=== PATIENT | male | born 1930 | race Caucasian/White ===

== ENCOUNTER 2019-04-05 10:34 | Emergency (ER) | payer BC ==
[2019-04-05 10:41] VITALS: BP 139/69; PULSE 57
--- NOTE | 2019-04-05 11:18 | EDM.PDOC ---
ED HPI GENERAL MEDICAL PROBLEM - General Chief Complaint: Neuro Symptoms/Deficits Stated Complaint: MEDICAL VIA [facility] Time Seen by Provider: 04/05/19 11:01 Source of Information: Reports: Patient, Family, RN Notes Reviewed History Limitations: Reports: No Limitations - History of Present Illness INITIAL COMMENTS - FREE TEXT/NARRATIVE: 88-year-old gentleman presents to the emergency department today with complaint of right sided weakness, he is had 2 events this morning the first one is approximately 7 AM 4 hours prior events of right-sided weakness lasting about 10 minutes with complete resolution. The next event happened at 8 AM with right sided weakness and a right-sided facial droop. This event lasted less than 10 minutes EMS services were called at that time however he had spontaneous resolution EMS stroke scale at the time Merino was negative. He feels back to his normal self has no functional complaints at this time. took 4 baby asa this am - Related Data Allergies Allergy/AdvReac Type Severity Reaction Status Date / Time Penicillins Allergy Rash Verified 04/05/19 10:42 Home Meds: Home Meds Allopurinol [Zyloprim] 1 tab PO DAILY 04/05/19 [History] Aspirin [Halfprin] 2 tab PO DAILY 04/05/19 [History] Enalapril [Vasotec] 10 mg PO DAILY 04/05/19 [History] Hydrochlorothiazide [Microzide] 12.5 mg PO DAILY 04/05/19 [History] Oseltamivir Phosphate 1 cap PO ASDIRECTED 04/05/19 [History] Past Medical History HEENT History: Reports: Impaired Vision Cardiovascular History: Reports: Hypertension Respiratory History: Reports: Other (See Below) Other Respiratory History: chronic dry cough Gastrointestinal History: Reports: GERD Musculoskeletal History: Reports: Arthritis, Back Pain, Chronic, Gout Neurological History: Reports: Vertigo Oncologic (Cancer) History: Reports: Prostate - Past Surgical History HEENT Surgical History: Reports: None Cardiovascular Surgical History: Reports: None Respiratory Surgical History: Reports: None GI Surgical History: Reports: None Neurological Surgical History: Reports: None Musculoskeletal Surgical History: Reports: Carpal Tunnel Dermatological Surgical History: Reports: None Social & Family History - Tobacco Use Smoking Status *Q: Never Smoker Second Hand Smoke Exposure: No - Caffeine Use Caffeine Use: Reports: Coffee - Recreational Drug Use Recreational Drug Use: No - Living Situation & Occupation Living situation: Reports: , with Spouse Occupation: Retired ED ROS GENERAL - Review of Systems Review Of Systems: See Below Constitutional: Reports: No Symptoms HEENT: Reports: No Symptoms Respiratory: Reports: No Symptoms Cardiovascular: Reports: No Symptoms GI/Abdominal: Reports: No Symptoms : Reports: No Symptoms Musculoskeletal: Reports: No Symptoms Skin: Reports: No Symptoms Neurological: Reports: Weakness (Right sided now resolved) Psychiatric: Reports: No Symptoms ED EXAM, NEURO - Physical Exam Exam: See Below Text/Narrative:: General: Male, not in any distress, alert and oriented x3 HEENT: head is atraumatic normocephalic, eyes pupils equal round reactive to light, sclera clear no conjunctivitis appreciated. Ears tympanic membranes clear and coughlin landmarks and light reflex are present bilaterally canals are clear. Nose no septal deviation, nares are clear, no blood present. Mouth mucosa is moist and pink no erythema or exudate noted in soft palate, tongue is midline uvula is midline, dentition is intact. Neck: Supple no thyromegaly no tracheal deviation. Nodes: Cervical nodes subclavicular nodes nontender no palpable lymphadenopathy noted. Lungs: clear to auscultation bilaterally with symmetrical respirations, no adventitious noise appreciated. CV: Regular rate and rhythm S1 and S2 appreciated no murmurs rubs or gallops noted. Abdomen: Soft, nontender, no palpable masses or organomegaly appreciated, no distention no guarding bowel sounds are present, . Neuro: Cranial nerves II test with pupillary light reflex 4 mm to 2 mm bilaterally, CN III test pupillary constriction, lid elevation and eye abduction bilaterally, CN IV downward movement of eyes bilaterally, CN V good jaw movement, CN lateral deviation of the eyes bilaterally to finger movement , CN VII symmetrical smile shows teeth without difficulty, CN VIII pass finger rub to ears bilaterally, CN IX adequate voice and tone, CN X adequate voice and tone no difficulty swallowing, CN XI can shrug shoulders without difficulty, CN XII can stick tongue out without difficulty, cranial nerves II to XII intact as tested, power is 5 out 5 in upper and lower extremities, patellar reflex, biceps reflex +2 can do finger to nose without difficulty, no dysdiadochokinesis , no difficulty with rapid alternating movements can do [id number] without difficulty, Romberg is negative, has adequate gait , no focal neurologic deficit Course - Vital Signs Last Recorded V/S: Last Vital Signs Temp 97.7 F 04/05/19 10:53 Pulse 57 L 04/05/19 10:53 Resp 9 L 04/05/19 10:53 BP 139/69 04/05/19 10:53 Pulse Ox 95 04/05/19 10:53 - Orders/Labs/Meds Orders: Active Orders 24 hr Category Date Time Status EKG Documentation Completion [RC] ASDIRECTED Care 04/05/19 11:13 Active Peripheral IV Care [RC] . DIRECTED Care 04/05/19 11:25 Active CBC WITH AUTO DIFF [HEME] Urgent Lab 04/05/19 11:20 Results SEDIMENTATION RATE MANUAL [HEME] Urgent Lab 04/05/19 11:20 Results Sodium Chloride 0.9% [Saline Flush] Med 04/05/19 11:25 Active 10 ml FLUSH ASDIRECTED PRN Peripheral IV Insertion Adult [OM.PC] Urgent Oth 04/05/19 11:25 Ordered EKG 12 Lead [EK] Urgent Ther 04/05/19 11:09 Ordered Medication Orders Sodium Chloride (Saline Flush) 10 ml FLUSH ASDIRECTED PRN PRN Reason: Keep Vein Open Last Admin: 04/05/19 11:47 Dose: 10 ml Labs: Laboratory Tests 04/05/19 04/05/19 04/05/19 Range/Units 11:20 11:20 11:20 WBC 6.0 (4.5-11.0) K/uL RBC 4.14 L (4.30-5.90) M/uL Hgb 12.9 (12.0-15.0) g/dL Hct 39.7 L (40.0-54.0) % MCV 96 (80-98) fL MCH 31 (27-31) pg MCHC 33 (32-36) % Plt Count 273 (150-400) K/uL Neut % (Auto) 65 (36-66) % Lymph % (Auto) 19 L (24-44) % [place] % (Auto) 10 H (2-6) % Eos % (Auto) 5 H (2-4) % Baso % (Auto) 1 (0-1) % PT 10.9 (9.5-12.0) sec INR 1.01 (0.80-1.20) APTT 24.6 L (27.0-36.0) sec Sodium 139 L (140-148) mmol/L Potassium 4.3 (3.6-5.2) mmol/L Chloride 103 (100-108) mmol/L Carbon Dioxide 26 (21-32) mmol/L Anion Gap 14.3 H (5.0-14.0) mmol/L BUN 32 H (7-18) mg/dL Creatinine 1.6 H (0.8-1.3) mg/dL Est Cr Clr Drug Dosing 32.00 mL/min Estimated GFR (MDRD) 41 L (>60) Glucose 102 (74-106) mg/dL Calcium 9.2 (8.5-10.1) mg/dL Total Bilirubin 0.4 (0.2-1.0) mg/dL AST 17 (15-37) U/L ALT 20 (12-78) U/L Alkaline Phosphatase 70 (46-116) U/L Total Protein 7.6 (6.4-8.2) g/dL Albumin 3.5 (3.4-5.0) g/dL Globulin 4.1 H (2.3-3.5) g/dL Albumin/Globulin Ratio 0.9 L (1.2-2.2) Meds: Medications Generic Name Dose Route Start Last Admin Trade Name Freq PRN Reason Stop Dose Admin Sodium Chloride 10 ml 04/05/19 11:25 04/05/19 11:47 Saline Flush FLUSH 10 ml ASDIRECTED PRN Administration Keep Vein Open - Re-Assessments/Exams Free Text/Narrative Re-Assessment/Exam: 04/05/19 11:59 While in route to the CT scanner at approximately 11 AM he had another event with right sided facial droop and a pronator drift on the right side, symptoms all resolved by the time he returned from CAT scan 04/05/19 12:00 Departure - Departure Time of Disposition: 12:03 Disposition: DC/Tfer to Acute Hospital 02 Condition: Fair Clinical Impression: TIA (transient ischemic attack) - Discharge Information Referrals: PCP,None [Primary Care Provider] - Forms: ED Department Discharge - My Orders Last 24 Hours: My Active Orders 04/05/19 11:09 EKG 12 Lead [EK] Urgent 04/05/19 11:13 EKG Documentation Completion [RC] ASDIRECTED 04/05/19 11:20 CBC WITH AUTO DIFF [HEME] Urgent SEDIMENTATION RATE MANUAL [HEME] Urgent 04/05/19 11:25 Peripheral IV Care [RC] . DIRECTED Sodium Chloride 0.9% [Saline Flush] 10 ml FLUSH ASDIRECTED PRN Peripheral IV Insertion Adult [OM.PC] Urgent - Assessment/Plan Last 24 Hours: My Active Orders 04/05/19 11:09 EKG 12 Lead [EK] Urgent 04/05/19 11:13 EKG Documentation Completion [RC] ASDIRECTED 04/05/19 11:20 CBC WITH AUTO DIFF [HEME] Urgent SEDIMENTATION RATE MANUAL [HEME] Urgent 04/05/19 11:25 Peripheral IV Care [RC] . DIRECTED Sodium Chloride 0.9% [Saline Flush] 10 ml FLUSH ASDIRECTED PRN Peripheral IV Insertion Adult [OM.PC] Urgent Plan: Assessment Acuity = acute Site and laterality = crescendo TIAs Etiology = unclear etiology] Manifestations = none Location of injury = Home Lab values = CBC unremarkable sedimentation rate is pending, CMP unremarkable except for creatinine elevated 1.6 consistent with chronic renal failure stage G IIIB EKG demonstrates a sinus rhythm with a right bundle-branch block CT scan of the head reveals no acute intracranial process Plan Called discussed case with Dr. Arango at [facility] he kindly accepted the patient in transport felt this patient had significant acuity elected to fly him by air. He will be transported by [facility] This note was dictated using [employer] voice recognition software please call with any questions on syntax or grammar.
[2019-04-05] MEDS ORDERED: Sodium Chloride 0.9% 10 ML Syringe FLUSH PRN (11:25)
--- NOTE | 2019-04-05 11:40 | CRLCT ---
INDICATION: Right-sided weakness. COMPARISON: None. TECHNIQUE: CT head without intravenous contrast; coronal and sagittal reformats. FINDINGS: No intracranial hemorrhage. No mass lesions. No evidence of shift of the midline structures. The calvarium is unremarkable. 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 IMPRESSION: 1. No intracranial hemorrhage. 2. No mass lesions or shift of the midline structures. 3. Periventricular low density secondary to small vessel disease. 4. Age-appropriate brain atrophy. Please note that all CT scans at this facility use dose modulation, iterative reconstruction, and/or weight-based dosing when appropriate to reduce radiation dose to as low as reasonably achievable. Dictated by Jian Moore MD @ Apr 05 2019 11:35AM Signed by Dr. Jian Moore @ Apr 05 2019 11:38AM
== END 2019-04-05 12:25 ==
LOC: JP.ED 10:34
DX: G45.9 Transient cerebral ischemic attack, unspecified (principal); I10 Essential (primary) hypertension; M19.90 Unspecified osteoarthritis, unspecified site; M10.9 Gout, unspecified; Z88.0 Allergy status to penicillin; Z79.82 Long term (current) use of aspirin; Z79.899 Other long term (current) drug therapy
CPT/HCPCS: 36415; 70450; 80053; 85025; 85610; 85651; 85730; 93005; 99285-25